=== PATIENT | male | born 1995 | race Caucasian/White ===

== ENCOUNTER 2019-11-27 20:06 | Emergency (ER) | payer SELFPAY ==
[~2019-11-27] VITALS: Ht 187.9 cm; Wt 81.6 kg
[~2019-11-27 20:06] MED LIST: MOTRIN800 MG PO; NAPROSYN500 MG PO; NKHM
== END 2019-11-27 22:06 | disposition home or self-care (01) ==
LOC: ED 20:06
DX: H60.91 Unspecified otitis externa, right ear (principal)